=== PATIENT | female | born 1995 | race Hispanic/Latino ===

== ENCOUNTER 2022-11-16 08:35 | Emergency (ER) | payer OTHER ==
[~2022-11-16] VITALS: Ht 162.6 cm; Wt 63.5 kg
[2022-11-16] MEDS ORDERED: HYDROCODONE/ACETAMINOPHEN 5/325 MG TAB PO ONE (09:00)
[2022-11-16 09:36] LABS: APPEARANCE,URINE CLEAR (CLEAR); BILIRUBIN,URINE NEGATIVE (NEGATIVE); COLOR,URINE LIGHT-YELLOW (YELLOW); GLUCOSE, URINE (UA) NEGATIVE (NEGATIVE); KETONES,URINE NEGATIVE (NEGATIVE); LEUKOCYTE ESTERASE ,URINE NEGATIVE Leu/uL (NEGATIVE); NITRATE,URINE NEGATIVE (NEGATIVE); OCCULT BLOOD,URINE NEGATIVE (NEGATIVE); PH,URINE 6.5 (5.0-8.0); PROTEIN,URINE NEGATIVE (NEGATIVE); UROBILINOGEN,URINE 0.2 mg/dL (0.2-1.0)
[2022-11-16 10:08] LABS: HCG,QUALITATIVE URINE NEGATIVE (NEGATIVE)
[2022-11-16] MEDS ORDERED: IOHEXOL 350 MG/ML 100ML INFUS..BTL IV ONE (10:42)
[2022-11-16] MEDS ORDERED: ORPHENADRINE CITRATE 30 MG/ML ML IVP ONE (11:00)
[2022-11-16 11:05] LABS: BASOPHILS % (AUTO) 0.5 % (0.0-5.0); EOSINOPHILS % (AUTO) 0.4 % (0.0-8.0); HEMATOCRIT 38.9 % (36-48); LYMPHOCYTES % (AUTO) 22.8 % (21.0-51.0); MEAN CORPUSCULAR HEMOGLOBIN 24.7 pg (27.0-33.0); MEAN CORPUSCULAR HGB CONC 31.6 g/dL (32.0-36.0); MEAN CORPUSCULAR VOLUME 78.3 fL (79-99); MONOCYTES % (AUTO) 6.2 % (3.0-13.0); NEUTROPHILS % (AUTO) 69.6 % (40.0-77.0); PLATELET COUNT (AUTO) 263 K/uL (130-400); RED BLOOD CELL COUNT(AUTO) 4.97 MIL/uL (4.00-5.50); RED CELL DISTRIBUTION WIDTH 14.2 % (11.0-15.5); WHITE BLOOD COUNT (AUTO) 9.2 K/uL (4.8-10.8)
[2022-11-16 11:17] LABS: CREATININE 0.6 mg/dL (0.5-1.5); POTASSIUM 4.4 mmol/L (3.5-5.1)
[2022-11-16 11:39] LABS: ALBUMIN 3.6 g/dL (3.5-5.0); TOTAL PROTEIN, SERUM 7.2 g/dL (6.0-8.3)
[2022-11-16 13:43] VITALS: BP 149/87
[2022-11-16] MEDS ORDERED: IBUP-2070 PO (13:57)
[2022-11-16] MEDS ORDERED: CYCL-309 PO (13:57)
== END 2022-11-16 14:14 | disposition home or self-care (01) ==
LOC: EDH 08:35
DX: S39.012A Strain of muscle, fascia and tendon of lower back, initial encounter (principal); R10.32 Left lower quadrant pain; N94.89 Other specified conditions associated with female genital organs and menstrual cycle; Z88.0 Allergy status to penicillin; V89.2XXA Person injured in unspecified motor-vehicle accident, traffic, initial encounter; Y93.I9 Activity, other involving external motion; Y92.488 Other paved roadways as the place of occurrence of the external cause; Y99.8 Other external cause status
CPT/HCPCS: 99285; 70450; 80053; 85025; 81003; 81025; 36415; 74177; Q9967

== ENCOUNTER 2022-12-17 06:07 | Day surgery (SDC) | payer OTHER ==
[2022-12-16 14:08] LABS: BASOPHILS % (AUTO) 0.4 % (0.0-5.0); EOSINOPHILS % (AUTO) 1.1 % (0.0-8.0); HEMATOCRIT 39.8 % (36-48); LYMPHOCYTES % (AUTO) 28.9 % (21.0-51.0); MEAN CORPUSCULAR HEMOGLOBIN 25.1 pg (27.0-33.0); MEAN CORPUSCULAR HGB CONC 31.4 g/dL (32.0-36.0); MEAN CORPUSCULAR VOLUME 79.9 fL (79-99); MONOCYTES % (AUTO) 7.5 % (3.0-13.0); NEUTROPHILS % (AUTO) 61.4 % (40.0-77.0); PLATELET COUNT (AUTO) 264 K/uL (130-400); RED BLOOD CELL COUNT(AUTO) 4.98 MIL/uL (4.00-5.50); RED CELL DISTRIBUTION WIDTH 13.9 % (11.0-15.5); WHITE BLOOD COUNT (AUTO) 9.2 K/uL (4.8-10.8)
[2022-12-16 14:32] VITALS: BP 136/80
[~2022-12-17] VITALS: Ht 149.9 cm; Wt 85.9 kg
[2022-12-17] VITALS (19 sets, daily range): BP systolic 132–151; BP diastolic 77–93
[~2022-12-17 06:07] MED LIST: BUPIVACAINE/PF 0.25% 10ML VIAL IJ ONE; IBUP-2070 PO; METHYLENE BLUE 5 MG/ML AMP ONE
[2022-12-17] MEDS ORDERED: LACTATED RINGERS 1000ML 1,000 ML IV ONE (06:28)
[2022-12-17] MEDS ORDERED: CLINDAMYCIN IVPB 900MG/50ML 50 ML IV ONE (06:29)
[2022-12-17] MEDS ORDERED: LEVOFLOXACIN 500 MG/D5W 100 ML 100 ML ONE (06:29)
[2022-12-17] MEDS ORDERED: FAMOTIDINE 20MG VIAL IV ONE (07:21)
[2022-12-17] MEDS ORDERED: PROPOFOL 10 MG/ML 20ML VIAL IV ONE (07:28)
[2022-12-17] MEDS ORDERED: SUCCINYLCHOLINE CHLORIDE 20 MG/ML 10 ML VIAL ONE (07:28)
[2022-12-17] MEDS ORDERED: GLYCOPYRROLATE 1 MG/5 ML SYRINGE ONE (07:28)
[2022-12-17] MEDS ORDERED: LIDOCAINE PF 100MG/5ML (2%) SYRINGE 5ML ONE (07:28)
[2022-12-17] MEDS ORDERED: PHENYLEPHRINE HCL 10 MG/ML 1ML VIAL IV ONE (07:28)
[2022-12-17] MEDS ORDERED: MIDAZOLAM HCL 1 MG/ML 2ML VIAL ONE (07:28)
[2022-12-17] MEDS ORDERED: ROCURONIUM 10MG/1ML SYR 10 MG/ML ML ONE (07:28)
[2022-12-17] MEDS ORDERED: FENTANYL CITRATE PF 50 MCG/1 ML 2ML VIAL ONE ×2 (07:29→08:26)
[2022-12-17] MEDS ORDERED: ONDANSETRON 4MG INJ ONE ×2 (07:36→10:39)
[2022-12-17] MEDS ORDERED: NEOSTIGMINE 5MG/5ML SYR IV ONE (07:36)
[2022-12-17] MEDS ORDERED: MEPERIDINE-PF 25 MG/ML SYG ONE (08:25)
[2022-12-17] MEDS ORDERED: BUPIVACAINE/PF 0.25% 10ML VIAL IJ ONE (08:34)
== END 2022-12-17 11:35 | disposition home or self-care (01) ==
LOC: DAH 06:07
PROVIDERS: ATTEND Obstetrics & Gynecology
DX: N83.292 Other ovarian cyst, left side (principal); Z20.822 Contact with and (suspected) exposure to COVID-19; N83.8 Other noninflammatory disorders of ovary, fallopian tube and broad ligament; Z88.0 Allergy status to penicillin; Z88.8 Allergy status to other drugs, medicaments and biological substances
CPT/HCPCS: 84703; 85025; 86850; 86900; 86901; 87426; 36415; 49322; J7030; A4351; J7120; J3490 ×5; J3010 ×2; J2710; J1956; J0330; J2001; J2250; J2704; J2405 ×2; Q9968; J2175; J2370; G0168; A4649 ×2; A4930; A4215; A4223; A4222; A4221; A4663; A4600